=== PATIENT | male | born 1950 | race Caucasian/White ===

== ENCOUNTER 2020-10-16 12:33 | Emergency (ER) | payer MEDICARE, OTHER ==
[~2020-10-16] VITALS: Ht 167.6 cm; Wt 46.8 kg
[~2020-10-16 12:33] MED LIST: ASCO500C PO; CYAN25008 PO; ERGO500027 PO; FERR325T14 PO; FURO-68 PO; LINE600T12 PO; MORP-15 PO; ONDA4TAB12 PO; OXYC5CAP PO; PANT40TA77 PO; POTA20TA4 PO; VITA-8 PO; VITA80003 PO; ZINC50TA39 PO
[2020-10-16] MEDS ORDERED: MORPHINE SULFATE 4 MG/ML VIAL. IV/SQ PRN (13:00)
[2020-10-16 13:48] LABS: BASO % 1 % (0-3); EOS % 1 % (0-3); HEMOGLOBIN 9.1 g/dL (13.0-17.5); LYMPH # 0.5 x10^3/uL (1.0-4.8); LYMPH % 11 % (24-48); MEAN CORPUSCULAR HEMOGLOBIN 31 pg (25-35); MEAN CORPUSCULAR HGB CONC 34 g/dL (31-37); MEAN CORPUSCULAR VOLUME 91 fL (79-100); MONO # 0.2 x10^3/uL (0.0-1.1); MONO % 5 % (0-9); NEUT % 83 % (31-73); PLATELET COUNT 33 x10^3/uL (140-400); RED BLOOD COUNT 2.96 x10^6/uL (4.30-5.70); RED CELL DISTRIBUTION WIDTH 17.2 % (11.5-14.5); WHITE BLOOD COUNT 4.8 x10^3/uL (4.0-11.0)
[2020-10-16 14:07] LABS: PROTHROMBIN TIME PATIENT 20.4 SEC (11.7-14.0)
--- NOTE | 2020-10-16 14:08 | RAD ---
EXAM: Abdomen acute complete, 3 views. HISTORY: Pain. COMPARISON: 09/08/2020 FINDINGS: A frontal view the chest and frontal upright and supine views of abdomen are obtained. Ther e is emphysema with superimposed chronic interstitial changes. There are small bilateral pleural effu sions. There is right basilar atelectasis or interstitial infiltrate. There is a stable cardiac silho uette. There is no pneumothorax. There are nonspecific air-filled loops of bowel within the abdomen. There is no transition point to suggest obstruction. There is no free air. There is an IVC filter ove rlying expected position. There are anastomotic sutures overlying the mid abdomen. There are vascular calcifications. There are pelvic phleboliths. IMPRESSION: 1. Emphysema with superimposed chronic interstitial changes. 2. Small bilateral pleural effusions and right basilar atelectasis or interstitial infiltrate. 3. Nonspecific bowel gas pattern. There is no evidence of obstruction. Electronically signed by: Inge Underwood MD (10/16/2020 2:06 PM) [id number]
[2020-10-16 14:11] LABS: CALCIUM 8.3 mg/dL (8.5-10.1); CREATININE 1.4 mg/dL (0.7-1.3); POTASSIUM 3.6 mmol/L (3.5-5.1)
[2020-10-16 14:14] LABS: PLT ESTIMATE DECREASED (ADEQUATE)
[2020-10-16 14:15] LABS: ANISOCYTOSIS SLIGHT; OVALOCYTES FEW
[2020-10-16 14:16] LABS: SCHISTOCYTES OCC; TOXIC GRANULATION SLIGHT
[2020-10-16 14:17] LABS: ALBUMIN 2.2 g/dL (3.4-5.0); ALBUMIN/GLOBULIN RATIO 0.6 (1.0-1.7); MAGNESIUM 1.4 mg/dL (1.8-2.4); TOTAL PROTEIN 5.9 g/dL (6.4-8.2)
--- NOTE | 2020-10-16 14:43 | EKG ---
[facility] [address] [place] [address] Test Date: 2020-10-16 Test Time: 13:14:46 Pat Name: GERI AREVALO Department: Room: Gender: M [employer]: : 1950 Requested By: CLEOPATRA ALEJANDRE Order Number: [id number] Reading MD: Measurements Intervals [place] Rate: 72 P: 90 IL: 126 QRS: 61 QRSD: 86 T: 59 QT: 394 QTc: 433 Interpretive Statements SINUS RHYTHM LEFT ATRIAL ABNORMALITY ABNORMAL ECG RI6.01 No previous ECG available for comparison
--- NOTE | 2020-10-16 15:13 | PHYS DOC ---
Past Medical History Past Medical History: Cancer, COPD, Liver Disease, Other Additional Past Medical Histor: LUNG AND COLON CA, ESOPHAGEAL VARICES, SKIN CA Past Surgical History: Other Additional Past Surgical Histo: ILEOSTOMY, BOWEL SURGERY Smoking Status: Former Smoker Alcohol Use: None General Adult EDM: Chief Complaint: SHORTNESS OF BREATH HPI: HPI: Patient is 70-year-old male with past medical history of lung cancer currently on oral chemotherapy, COPD, liver cirrhosis who presents to the ED today complaining of shortness of breath and weight loss. Patient states he has lost 30 pounds in the last 2 months. He reports feeling nauseated after eating. He is complaining of slight abdominal pain rated at 4 out of 10 described as sharp and intermittent worse on eating. Denies any diarrhea. Denies any vomiting. Review of Systems: Review of Systems: Constitutional: Reports weight loss. Denies fever or chills. [] Eyes: Denies change in visual acuity. [] HENT: Denies nasal congestion or sore throat. [] Respiratory: Reports shortness of breath. Denies cough Cardiovascular: Denies chest pain or edema. [] GI: Reports nausea. Denies abdominal pain,vomiting, bloody stools or diarrhea. [] : Denies dysuria. [] Musculoskeletal: Denies back pain or joint pain. [] Integument: Denies rash. [] Neurologic: Denies headache, focal weakness or sensory changes. [] Psychiatric: Denies depression or anxiety. [] Heart Score: Risk Factors: Risk Factors: DM, Current or recent (<one month) smoker, HTN, HLP, family history of CAD, obesity. Risk Scores: Score 0 - 3: 2.5% MACE over next 6 weeks - Discharge Home Score 4 - 6: 20.3% MACE over next 6 weeks - Admit for Clinical Observation Score 7 - 10: 72.7% MACE over next 6 weeks - Early Invasive Strategies Current Medications: Current Medications Medications (Trade) Dose Ordered Sig/Agata Start Time Stop Time Status Last Admin Dose Admin Morphine Sulfate (Morphine Sulfate) 4 mg PRN Q15MIN PRN 10/16/20 13:00 10/17/20 12:59 10/16/20 13:31 4 MG Allergies: Allergies: Allergies Coded Allergies Type Severity Reaction Last Updated Verified Iodinated Contrast Media Allergy Intermediate 09/08/20 Yes NSAIDS (Non-Steroidal Anti-Inflamma Allergy Intermediate 09/08/20 Yes levofloxacin Allergy Intermediate 09/08/20 Yes Physical Exam: PE: Constitutional: Cachectic appearing patient, no acute distress, non-toxic appearance. [] HENT: Normocephalic, atraumatic, bilateral external ears normal, oropharynx moist, no oral exudates, nose normal. [] Eyes: PERRLA, EOMI, conjunctiva normal, no discharge. [] Neck: Normal range of motion, no tenderness, supple, no stridor. [] Cardiovascular:Heart rate regular rhythm, no murmur [] Lungs & Thorax: Bilateral breath sounds clear to auscultation [] Abdomen: Colostomy noted to the abdomen. Bowel sounds normal, soft, no tenderness, no masses, no pulsatile masses. [] Skin: Warm, dry, no erythema, no rash. [] Back: No tenderness, no CVA tenderness. [] Extremities: No tenderness, no cyanosis, no clubbing, ROM intact, no edema. [] Neurologic: Alert and oriented X 3, normal motor function, normal sensory function, no focal deficits noted. [] Psychologic: Affect normal, judgement normal, mood normal. [] Current Patient Data: Labs: Laboratory Tests Test 10/16/20 13:20 White Blood Count 4.8 x10^3/uL (4.0-11.0) Red Blood Count 2.96 x10^6/uL (4.30-5.70) L Hemoglobin 9.1 g/dL (13.0-17.5) L Hematocrit 27.0 % (39.0-53.0) L Mean Corpuscular Volume 91 fL (79-100) Mean Corpuscular Hemoglobin 31 pg (25-35) Mean Corpuscular Hemoglobin Concent 34 g/dL (31-37) Red Cell Distribution Width 17.2 % (11.5-14.5) H Platelet Count 33 x10^3/uL (140-400) L Neutrophils (%) (Auto) 83 % (31-73) H Lymphocytes (%) (Auto) 11 % (24-48) L Monocytes (%) (Auto) 5 % (0-9) Eosinophils (%) (Auto) 1 % (0-3) Basophils (%) (Auto) 1 % (0-3) Neutrophils # (Auto) 4.0 x10^3/uL (1.8-7.7) Lymphocytes # (Auto) 0.5 x10^3/uL (1.0-4.8) L Monocytes # (Auto) 0.2 x10^3/uL (0.0-1.1) Eosinophils # (Auto) 0.0 x10^3/uL (0.0-0.7) Basophils # (Auto) 0.0 x10^3/uL (0.0-0.2) Toxic Granulation Slight Platelet Estimate Decreased (ADEQUATE) Anisocytosis Slight Ovalocytes Few Schistocytes Occ Prothrombin Time 20.4 SEC (11.7-14.0) H Prothrombin Time INR 1.8 (0.8-1.1) H Activated Partial Thromboplast Time 33 SEC (24-38) Sodium Level 145 mmol/L (136-145) Potassium Level 3.6 mmol/L (3.5-5.1) Chloride Level 113 mmol/L (98-107) H Carbon Dioxide Level 23 mmol/L (21-32) Anion Gap 9 (6-14) Blood Urea Nitrogen 27 mg/dL (8-26) H Creatinine 1.4 mg/dL (0.7-1.3) H Estimated GFR (Cockcroft-Gault) 50.0 BUN/Creatinine Ratio 19 (6-20) Glucose Level 113 mg/dL (70-99) H Lactic Acid Level 1.7 mmol/L (0.4-2.0) Calcium Level 8.3 mg/dL (8.5-10.1) L Magnesium Level 1.4 mg/dL (1.8-2.4) L Total Bilirubin 1.0 mg/dL (0.2-1.0) Aspartate Amino Transferase (AST) 11 U/L (15-37) L Alanine Aminotransferase (ALT) 12 U/L (16-63) L Alkaline Phosphatase 92 U/L (46-116) Ammonia 12 mcmol/L (11-34) Troponin I Quantitative < 0.017 ng/mL (0.000-0.055) VX-Aaq-E-Type Natriuretic Peptide 319 pg/mL (0-124) H Total Protein 5.9 g/dL (6.4-8.2) L Albumin 2.2 g/dL (3.4-5.0) L Albumin/Globulin Ratio 0.6 (1.0-1.7) L Lipase 248 U/L (73-393) Procalcitonin 1.06 ng/mL (0.00-0.10) H Laboratory Tests 10/16/20 13:20 Laboratory Tests 10/16/20 13:20 Vital Signs: Vital Signs Date Time Temp Pulse Resp B/P (MAP) Pulse Ox O2 Delivery O2 Flow Rate FiO2 10/16/20 14:14 64 15 149/65 (93) 100 Room Air 10/16/20 12:40 98.2 98.2 EKG: EKG: [] Radiology/Procedures: Radiology/Procedures: []PROCEDURE: ACUTE ABDOMEN SERIES EXAM: Abdomen acute complete, 3 views. HISTORY: Pain. COMPARISON: 09/08/2020 FINDINGS: A frontal view the chest and frontal upright and supine views of abdomen are obtained. There is emphysema with superimposed chronic interstitial changes. There are small bilateral pleural effusions. There is right basilar atelectasis or interstitial infiltrate. There is a stable cardiac silhouette. There is no pneumothorax. There are nonspecific air-filled loops of bowel within the abdomen. There is no transition point to suggest obstruction. There is no free air. There is an IVC filter overlying expected position. There are anastomotic sutures overlying the mid abdomen. There are vascular calcifica tions. There are pelvic phleboliths. IMPRESSION: 1. Emphysema with superimposed chronic interstitial changes. 2. Small bilateral pleural effusions and right basilar atelectasis or interstitial infiltrate. 3. Nonspecific bowel gas pattern. There is no evidence of obstruction. Electronically signed by: Inge Underwood MD (10/16/2020 2:06 PM) [id number] DICTATED and SIGNED BY: INGE UNDERWOOD MD DATE: 10/16/20 [id number] 0 Course & Med Decision Making: Course & Med Decision Making Pertinent Labs and Imaging studies reviewed. (See chart for details) This is a 70-year-old male patient with history of lung cancer, liver cirrhosis, COPD among other illnesses presenting today complaining of shortness of breath and continued weight loss, symptoms for 2 months. Patient has O2 saturations of 98 to 100% on room air. Patient is afebrile. Acute abdominal series is negative for any acute findings. Lab work is negative for any acute findings. Spoke to who requested we discharge patient home. Canelo Disclaimer: Canelo Disclaimer: This electronic medical record was generated, in whole or in part, using a voice recognition dictation system. Departure Departure Impression: Primary Impression: Hypomagnesemia Additional Impressions: JALEN (acute kidney injury) Shortness of breath Weight loss, unintentional Disposition: 01 DC HOME SELF CARE/HOMELESS Condition: STABLE Referrals: ANJELICA YEBOAH MD (PCP) follow up next week Patient Instructions: Form - Daily Weight Record, Shortness of Breath, [id number] Additional Instructions: You were evaluated in the emergency room for weight loss and shortness of breath. Your work-up was negative for any acute findings. Please follow-up with your own doctor in the course of this week CLEOPATRA ALEJANDRE APRN Oct 16, 2020 15:13
[2020-10-16 15:14] VITALS: BP 140/63
== END 2020-10-16 15:35 | disposition home or self-care (01) ==
LOC: ER 12:33
DX: E83.42 Hypomagnesemia (principal); N17.9 Acute kidney failure, unspecified; R06.02 Shortness of breath; R63.4 Abnormal weight loss; J44.9 Chronic obstructive pulmonary disease, unspecified; Z87.891 Personal history of nicotine dependence; Z88.1 Allergy status to other antibiotic agents; Z91.041 Radiographic dye allergy status; Z88.6 Allergy status to analgesic agent
CPT/HCPCS: 36415; 74022; 80053; 82140; 83605; 83690; 83735; 83880; 84145; 84484; 85025; 85610; 85730; 87040; 93005; 96374; 99285; J2270